=== PATIENT | female | born 1940 | race Caucasian/White ===

== ENCOUNTER → 2017-10-09 | Day surgery (SDC) | payer OTHER, MEDICARE ==
[~2017-10-09] VITALS: Ht 165.1 cm; Wt 60.8 kg
[~2017-10-09] MED LIST: AMITRIPTYLINE H25 M2 PO; ASPIRIN EC81 M1 PO; ATIVAN0.5 M1 PO; BUPROPION HCL150 M4 PO; CRESTOR20 M2 PO; MIRTAZAPINE45 M1 PO; NIFEDIPINE ER30 M2 PO; TOPROL XL25 M1 PO; VITAMIN B-1100 MG PO; VITAMIN B-121000 MC3 PO
--- NOTE | 2017-10-09 09:07 | Operative Report ---
Operative/Inv Procedure Report Surgery Date: 10/09/17 Name of Procedure: Excision of anterior bilateral tongue lesion, right with primary closure, 2 x 3 cm Pre-Operative Diagnosis: Anterior lateral tongue lesion, right Post-Operative Diagnosis: Same Estimated Blood Loss: scant Surgeon/Poultry Scalder: Carmen Smith MD Anesthesia: moderate sedation Specimens: Anterior lateral tongue lesion, right stitch anterior Complications: None Condition: Stable on leaving the OR Operative Indication: hx of squamous cell carcinoma and dysplasia Patient underwent excision of anterior lateral tongue lesion 07/16/2017 Pathology review and 0.3 cm focus of squamous cell carcinoma with depth of invasion less than 1 mm there was moderate to severe dysplasia extending to the excision margins Patient now presents for reexcision of the anterior lateral tongue lesion Operative/Procedure Note Note: Patient was brought to the operating room. Placed on the operating table in supine position. First timeout was performed including patient's name, ID number and planned procedure. Then IV sedation was given followed by local injection. This consisted of 1% lidocaine with 1 100,000 epinephrine. Approximately 6 mL of this solution was injected in the region of the lesion. OR table was left in the midline with head toward the anesthesia. Oral cavity was sterily draped. Oral cavity was exposed. Bite block was inserted into oral acavity and wedged into right lateral for oral cavity for retraction. A tip of tongue was grasped with the fingers retracted from the oral cavity and rotated so that the lateral inferior surface was well visualized. Tongue was inspected. There was 1.5 x 2 cm hyperkeratotic-like lesion together with incisional scar from prior excision. A 15 blade was used to make the incision around the lesion. Approximately 2 x 3 cm specimen was obtained. The excision of the lesion was then carried with a 15 blade through the mucosa into the submucosal tissue excising previous scarring. Bovie where they are needle-tipped. Bleeding was controlled with a suction. Once the lesion was excised and was marked for orientation with anterior long stitch . Closure was carried with 40 Vicryl sutures. Surgery was completed. The patient was fully reawakened, and taken to the short -term surgery recovery area in good condition. There were no complications. Estimated blood loss was minimal. Findings: Anterior lateral tongue1.5 x 2 cm hyperkeratotic area with scarring Discharge Disposition: Same Day Admissions
== END ==
LOC: STS 02:53
DX: D10.1 Benign neoplasm of tongue (principal); Z85.810 Personal history of malignant neoplasm of tongue; I10 Essential (primary) hypertension; Z86.73 Personal history of transient ischemic attack (TIA), and cerebral infarction without residual deficits; Z79.82 Long term (current) use of aspirin
CPT/HCPCS: 93005; 93010; J0131; J0690; J2250